=== PATIENT | male | born 1985 | race Caucasian/White ===

== ENCOUNTER 2023-01-18 05:04 | Emergency (ER) | payer SELFPAY ==
[2023-01-18 05:05] VITALS: BP 168/92; PULSE 87; RESP 18; O2SAT 99; BMI 22.8
--- NOTE | 2023-01-18 05:17 | HMH.EDGENADL ---
Discharge Plan Disposition Patient Disposition: Home, Self-Care Condition: Good Prescriptions Prescriptions: No Action fluoxetine [Prozac] 20 mg capsule 20 mg PO DAILY 30 Days Qty: 30 2RF hydroxyzine pamoate [Vistaril] 25 mg capsule 25 mg PO TID PRN (Reason: itching) Qty: 90 0RF Clinical Impressions Clinical Impression: Encounter for drug screening Discharge ED Provider: Venkata Slaughter General Adult HPI General Stated complaint: wants drug test Time Seen by Provider: 01/18/23 05:15 History of Present Illness HPI narrative: 37-year-old male presents with his significant other for drug testing. He reports he is here to prove a point . She is concerned that he has been acting strangely and that he is on drugs. He is adamant that he is not on drugs. They are requesting a blood and hair and urine test . Patient denies using any drugs recently. Denies any chest pain abdominal pain shortness of breath or other concerns at this time. No suicidal or homicidal ideation. Related Data Previous Rx's Medication Instructions Recorded fluoxetine 20 mg capsule (Prozac) 20 mg PO DAILY 30 days #30 caps 02/10/19 hydroxyzine pamoate 25 mg capsule 25 mg PO TID PRN itching #90 caps 02/10/19 (Vistaril) Allergies Allergy/AdvReac Type Severity Reaction Status Date / Time No Known Allergies Allergy Unverified 02/10/19 10:41 [facility] Disclaimer: The information contained in this section may have been updated after the patient was seen, as this information can be updated by other users. Social History Smoking Status: Current every day smoker tobacco type: cigarettes packs per day: 1 alcohol intake: never substance use type: denies use current occupational status: employed Travel in the last 8 weeks: Inside the [employer] ROS Obtained: Yes All systems reviewed & no additional complaints except as documented Physical Exam General General appearance: alert and in no apparent distress Head Head exam: atraumatic and normocephalic Eye Eye exam: Present normal appearance, PERRL and EOMI ENT ENT exam: Present normal oropharynx and normal external ear exam Neck Neck exam: Present normal inspection and full ROM Chest Chest inspection: Present normal inspection and symmetric chest wall rise; Absent tenderness Respiratory Respiratory exam: Present normal lung sounds bilaterally; Absent respiratory distress Cardiovascular Cardiovascular exam: Present regular rate and normal rhythm Abdominal Exam Abdominal exam: Present soft; Absent distention, tenderness or guarding Extremities Exam Extremities exam: Present normal inspection; Absent edema or joint swelling Back Exam Back exam: Present normal inspection; Absent tenderness Neurological Exam Neurological exam: Present alert and oriented X3; Absent motor sensory deficit Psychiatric Psychiatric exam: Present normal affect and normal mood Skin Skin exam: Present warm, dry and normal color Lymphatic Lymphatic Findings: no adenopathy Medical Decision Making Medical Records Medical records reviewed: Yes I reviewed the patient's medical records. Gato Inquiry Pt receiving controlled substance: No Gato was queried for this patient: No Lab Data Lab results reviewed: Yes I reviewed the patient's lab results. Medical Decision Narrative: 37-year-old male reportedly previously healthy presents at 5:00 in the morning with his significant other requesting a blood, hair and urine drug test, so i can prove a point . Patient is alert and oriented and generally well-appearing. He denies recent drug use and reports no symptoms or concerns at this time. Girlfriend reports he has been acting strangely and thinks that he is lying about being clean. We discussed with him that we do not do blood or hair drug test. We also discussed that this is an emergency department and they could obtain a urine drug test from a retail store just as easily if they do not have a
[2023-01-18 05:28] VITALS: BP 168/92; PULSE 80; RESP 18; TEMP 36.6; O2SAT 99
== END 2023-01-18 05:29 | disposition home or self-care (01) ==
PROVIDERS: Emergency Provider Emergency Medicine
DX: Z02.83 Encounter for blood-alcohol and blood-drug test (principal); F17.210 Nicotine dependence, cigarettes, uncomplicated
CPT/HCPCS: 99281

== ENCOUNTER 2023-01-25 16:16 | Emergency (ER) | payer BC, SELFPAY ==
[2023-01-25 16:27] VITALS: BP 131/94; PULSE 79; RESP 20; TEMP 36.6; O2SAT 97; BMI 24.5
--- NOTE | 2023-01-25 16:28 | HMH.EDGENADL ---
Discharge Plan Disposition Patient Disposition: Home, Self-Care Prescriptions Prescriptions: No Action fluoxetine [Prozac] 20 mg capsule 20 mg PO DAILY 30 Days Qty: 30 2RF hydroxyzine pamoate [Vistaril] 25 mg capsule 25 mg PO TID PRN (Reason: itching) Qty: 90 0RF Referrals Follow up/Referrals: Provider,Referral, MD [Primary Care Provider] - See instructions Activity Restrictions/Add. Instructions Additional Instructions/Restrictions: You came to the emergency department today without any acute symptoms specifically no symptoms of suicidal ideation, suicidal attempt, homicidal ideation, or any other acute psychiatric illness. If you do begin to have any thoughts of harming yourself please return to the emergency department. Clinical Impressions Clinical Impression: Encounter for medical screening examination Discharge ED Provider: Pablito Lauren General Adult HPI General Stated complaint: Medical Elav Time Seen by Provider: 01/25/23 16:19 History of Present Illness HPI narrative: Patient is a 37-year-old male here voluntarily for a medical screening exam. States that his parents called the police today for unclear reasons and the police brought him to the emergency department because the patient said he wanted to be voluntarily assessed from a psychiatric standpoint. He states that he had no suicidal attempts, has not been doing any drugs or drinking any significant mount of alcohol, has not been having any suicidal ideation, no homicidal ideation, no auditory or visual hallucinations or evidence of psychosis in the past. No one else accompanies him today including police or any other family members. Related Data Previous Rx's Medication Instructions Recorded fluoxetine 20 mg capsule (Prozac) 20 mg PO DAILY 30 days #30 caps 02/10/19 hydroxyzine pamoate 25 mg capsule 25 mg PO TID PRN itching #90 caps 02/10/19 (Vistaril) Allergies Allergy/AdvReac Type Severity Reaction Status Date / Time No Known Allergies Allergy Unverified 02/10/19 10:41 [facility] Disclaimer: The information contained in this section may have been updated after the patient was seen, as this information can be updated by other users. Social History Smoking Status: Current every day smoker tobacco type: cigarettes packs per day: 1 alcohol intake: never substance use type: denies use current occupational status: employed Travel in the last 8 weeks: Inside the [place] ROS Obtained: Yes All systems reviewed & no additional complaints except as documented Physical Exam General General appearance: alert and in no apparent distress Respiratory Respiratory exam: Present normal lung sounds bilaterally; Absent respiratory distress Cardiovascular Cardiovascular exam: Present regular rate; Absent tachycardia Neurological Exam Neurological exam: Present alert, oriented X3 and other (Normal neurologic exam no evidence of any clinical intoxication) Psychiatric Psychiatric exam: Present normal affect and normal mood; Absent depressed, agitated, anxious, flat affect, manic, homicidal ideation or suicidal ideation Medical Decision Making Gato Inquiry Pt receiving controlled substance: No Medical Decision Narrative: 37-year-old male here for unclear reasons but claims that he wanted to be evaluated under his own accord for psychiatric evaluation. He is alert oriented has a normal neurologic exam and states that he is not homicidal suicidal or having any type of auditory visual hallucinations. We are having a normal conversation and with the limited information that he is giving me there does not appear to be an acute psychiatric illness. There is no one else accompanying him to give any type of alternative story but the patient is very clearly stable at the moment. No indication for holding him against as well. No emergent medical condition was identified patient was discharged in stable condition. Critical Care C
[2023-01-25 16:33] VITALS: BP 131/94; PULSE 79; RESP 20; TEMP 36.6; O2SAT 97
--- NOTE | 2023-01-25 16:39 | PC.NURSE ---
pt D/C Pt was given a resource paper and explained all the numbers to him , I also gave him a pamphlet for mental health given and advised pt if he needs anything he can return to ER , pt verbally acknowledge the understanding to return
== END 2023-01-25 16:34 | disposition home or self-care (01) ==
PROVIDERS: Emergency Provider Student in an Organized Health Care Education/Training Program
DX: Z00.00 Encounter for general adult medical examination without abnormal findings (principal); F17.210 Nicotine dependence, cigarettes, uncomplicated
CPT/HCPCS: 99281